=== PATIENT | male | born 1955 | race Caucasian/White ===

== ENCOUNTER 2021-10-16 23:36 | Emergency (ER) | payer MEDICARE, OTHER ==
[~2021-10-16] VITALS: Ht 180.3 cm; Wt 91.7 kg
--- NOTE | 2021-10-16 23:50 | PHYS DOC ---
Past History Past Surgical History: Other General Adult EDM: Chief Complaint: CHEST PAIN HPI: HPI: ".. I ve had some chest pain for last three days...".. " It been constant.. I usually go to [facility]..." " It seems worse with coughing or deep breaths..." Patient is a 66 year old male who presents with above hx and complaints central chest pain for the last 3 days. States he been previous diagnosis of angina. Patient rates his pain as 3 out of 10. Seems worse with deep breaths and cough. Follow[facility]. Does have a history of continued tobacco use with approximately 60 pack years. Patient denies any recent trauma. No recent travel. Has not gotten flu vaccination this season. Has not gotten COVID vaccination. Patient denies any illicit drug use. Patient also follows at [facility]. Patient does have a history of bronchitis and COPD. Review of Systems: Review of Systems: Constitutional: Denies fever or chills Eyes: Denies change in visual acuity HENT: Denies nasal congestion or sore throat Respiratory: Denies cough or shortness of breath Cardiovascular: Complains of chest pain GI: Denies abdominal pain, nausea, vomiting, bloody stools or diarrhea : Denies dysuria Musculoskeletal: Denies back pain or joint pain Integument: Denies rash Neurologic: Denies headache, focal weakness or sensory changes Endocrine: Denies polyuria or polydipsia Lymphatic: Denies swollen glands Psychiatric: Denies depression or anxiety Family History: Family History: Noncontributory to presentation Current Medications: Current Meds: See nursing for home meds Allergies: Allergies: Allergies Coded Allergies Type Severity Reaction Last Updated Verified No Known Drug Allergies 10/16/21 No Physical Exam: PE: Constitutional: , no acute distress, non-toxic appearance. [] HENT: Normocephalic, atraumatic, bilateral external ears normal, oropharynx moist, no oral exudates, nose normal. [] Eyes: PERRLA, EOMI, conjunctiva normal, no discharge. [] Neck: Normal range of motion, no tenderness, supple, no stridor. [] Cardiovascular: Tachycardia heart rate regular rhythm, no murmur [], PMI to the left Lungs & Thorax: Bilateral breath sounds to apex with scattered wheezing auscultation [] Abdomen: Bowel sounds normal, soft, no tenderness, no masses, no pulsatile masses. [] Skin: Warm, dry, no erythema, no rash. [] Back: No tenderness, no CVA tenderness. [] Extremities: No tenderness, no cyanosis, no clubbing, ROM intact, no edema. No cording appreciated. Neurologic: Alert and oriented X 3, normal motor function, normal sensory function, no focal deficits noted. Psychologic: Affect normal, judgement normal, mood normal. [] Current Patient Data: Vital Signs: Vital Signs Date Time Temp Pulse Resp B/P (MAP) Pulse Ox O2 Delivery O2 Flow Rate FiO2 10/16/21 23:40 98.3 109 20 166/87 (113) 99 Room Air EKG: EKG: My interpretation EKG shows a sinus tachycardia 108 bpm. No findings of acute STEMI of contralateral changes. Time of EKG is 2342 hrs. My interpretation of second EKG shows a sinus rhythm at 94 bpm. No acute acute interval change from prior EKG. Time of this EKG is 0313 hrs. [] Radiology/Procedures: Radiology/Procedures: [][place] [address] IMAGING REPORT Signed PATIENT: RAJ GURROLA ACCOUNT: [id number] : 1955 LOCATION: ER AGE: 66 SEX: M EXAM STATUS: REG ER ORD. PHYSICIAN: SHARON STEWARD MD REASON: cp PROCEDURE: PORTABLE CHEST 1V XR CHEST 1V Clinical Indication: Reason: cp / Spl. Instructions: / History: Comparison: None. Findings: The cardiomediastinal silhouette is normal. Lungs are clear. There is no pneumothorax. No pleural effusion is appreciated. No acute bone abnormality. 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 IMPRESSION: No acute cardiopulmonary process. Electronically signed by: Brady Leyva MD (10/17/2021 3:22 AM) [facility] DICTATED AND SIGNED BY: BRADY LEYVA MD DATE: 10/17/21 0321 CC: SHARON STEWARD MD; PCP,NO ~ Heart Score: C/O Chest Pain: Yes HEART Score for Chest Pain: HEART Score for Chest Pain Response (Comments) Value History Moderately Suspicious 1 ECG Nonspecific Repolarizatio 1 Age > 65 2 Risk Factors 1 or 2 Risk Factors 1 Troponin < Normal Limit 0 Total 5 Risk Factors: Risk Factors: DM, Current or recent (<one month) smoker, HTN, HLP, family history of CAD, obesity. Risk Scores: Score 0 - 3: 2.5% MACE over next 6 weeks - Discharge Home Score 4 - 6: 20.3% MACE over next 6 weeks - Admit for Clinical Observation Score 7 - 10: 72.7% MACE over next 6 weeks - Early Invasive Strategies Course & Med Decision Making: Course & Med Decision Making Pertinent Labs and Imaging studies reviewed. (See chart for details) Patient take a daily aspirin. Patient follow-up outpatient stress testing. [facility] Patient return if any concerns. Patient strongly encouraged to stop smoking and using illicit drugs. Patient must follow-up. Impression: 1. Chest wall pain 2. Tobacco use 3. Drug screen positive for methamphetamine 4. Elevation of CK3 80 with normal tropes [] Dragon Disclaimer: Dragon Disclaimer: This electronic medical record was generated, in whole or in part, using a voice recognition dictation system. Dragon Disclaimer This chart was dictated in whole or in part using Voice Recognition software in a busy, high-work load, and often noisy Emergency Department environment. It m ay contain unintended and wholly unrecognized errors or omissions. SHARON STEWARD MD October 16, 2021 23:49
[2021-10-17 00:17] LABS: BASO # 0.1 x10^3/uL (0.0-0.2); BASO % 1 % (0-3); EOS # 0.4 x10^3/uL (0.0-0.7); EOS % 4 % (0-3); HEMATOCRIT 38.8 % (39.0-53.0); HEMOGLOBIN 13.3 g/dL (13.0-17.5); LYMPH # 4.2 x10^3/uL (1.0-4.8); LYMPH % 43 % (24-48); MEAN CORPUSCULAR HEMOGLOBIN 30 pg (25-35); MEAN CORPUSCULAR HGB CONC 34 g/dL (31-37); MEAN CORPUSCULAR VOLUME 89 fL (79-100); MONO # 0.8 x10^3/uL (0.0-1.1); MONO % 8 % (0-9); NEUT # 4.3 x10^3uL (1.8-7.7); NEUT % 44 % (31-73); PLATELET COUNT 329 x10^3/uL (140-400); RED BLOOD COUNT 4.38 x10^6/uL (4.30-5.70); RED CELL DISTRIBUTION WIDTH 13.9 % (11.5-14.5); WHITE BLOOD COUNT 9.9 x10^3/uL (4.0-11.0)
[2021-10-17 00:28] LABS: ANION GAP 13 (6-14); BLOOD UREA NITROGEN 22 mg/dL (8-26); CARBON DIOXIDE 24 mmol/L (21-32); CHLORIDE 99 mmol/L (98-107); CREATININE 1.3 mg/dL (0.7-1.3); GFR 55.2; GLUCOSE 123 mg/dL (70-99); POTASSIUM 3.9 mmol/L (3.5-5.1); SODIUM 136 mmol/L (136-145)
[2021-10-17] MEDS ORDERED: IV RINGERS SOLUTION,LACTATED 1,000 ML IV SCH (00:30)
[2021-10-17 00:39] LABS: ALBUMIN 3.8 g/dL (3.4-5.0); ALK PHOS 88 U/L (46-116); ALT (SGPT) 37 U/L (16-63); LIPASE 184 U/L (73-393); TOTAL BILIRUBIN 0.3 mg/dL (0.2-1.0); TOTAL PROTEIN 7.1 g/dL (6.4-8.2)
[2021-10-17 00:40] LABS: DIRECT BILIRUBIN < 0.1 mg/dL (0.0-0.2)
[2021-10-17 01:49] LABS: AST (SGOT) 33 U/L (15-37)
[2021-10-17 02:29] LABS: BARBITURATES NEG (NEG); BENZODIAZEPINES NEG (NEG); CANNABINOIDS NEG (NEG); COCAINE NEG (NEG); METHADONE NEG (NEG); OPIATES NEG (NEG); PHENCYCLIDINE NEG (NEG)
[2021-10-17 02:31] LABS: AMPHETAMINE/METHAMPHETAMINE POS (NEG)
[2021-10-17 02:39] LABS: BACTERIA,URINE 0 /HPF (0-FEW); CLARITY,URINE CLEAR; COLOR,URINE YELLOW; GLUCOSE,URINE NEG (NEG); NITRITE,URINE NEG (NEG); RBC,URINE 0 /HPF (0-2); UROBILINOGEN,URINE 0.2 mg/dL (0.2 mg/dL); WBC,URINE 0 /HPF (0-4)
--- NOTE | 2021-10-17 03:25 | RAD ---
XR CHEST 1V Clinical Indication: Reason: cp / Spl. Instructions: / History: Comparison: None. Findings: The cardiomediastinal silhouette is normal. Lungs are clear. There is no pneumothorax. No pleural eff usion is appreciated. No acute bone abnormality. There is right AC arthropathy, question osteolysis o r postsurgical change of the distal left clavicle. IMPRESSION: No acute cardiopulmonary process. Electronically signed by: Brady Stewart MD (10/17/2021 3:22 AM) [facility]
[2021-10-17 04:20] VITALS: BP 122/66
--- NOTE | 2021-10-17 06:27 | EKG ---
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
--- NOTE | 2021-10-17 06:31 | EKG ---
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
[2021-10-17 18:09] LABS: CHOLESTEROL/HDL RATIO 3.7; HDLC 59 mg/dL (40-60); THYROID STIM HORMONE (TSH) 3.895 uIU/mL (0.358-3.740); TRIGLYCERIDES 591 mg/dL (0-150); VLDLC 118 mg/dL (0-40)
== END 2021-10-17 04:39 | disposition home or self-care (01) ==
LOC: ER 23:36
DX: R07.89 Other chest pain (principal); R74.8 Abnormal levels of other serum enzymes; J44.9 Chronic obstructive pulmonary disease, unspecified; F15.10 Other stimulant abuse, uncomplicated; Z72.0 Tobacco use
CPT/HCPCS: 36415; 71045; 80048; 80061; 80076; 80307; 81001; 82550; 83690; 83880; 84443; 84484; 85025; 85379; 85610; 85730; 93005; 96360; 96361; 99285; J7120